=== PATIENT | male | born 1965 | race Caucasian/White ===

== ENCOUNTER 2025-06-26 12:18 | Inpatient (IN) | payer MEDICAID ==
[~2025-06-26] VITALS: Ht 167.6 cm; Wt 65.9 kg
[2025-06-26 14:32] VITALS: BP 124/73; TEMP 97.2; O2SAT 100
[2025-06-26] MEDS ORDERED: GLUCOSE 4 GM CHEW PO PRN (14:40)
[2025-06-26] MEDS ORDERED: BISACODYL 10 MG SUPP PR PRN (14:40)
[2025-06-26] MEDS ORDERED: ONDANSETRON 4MG ORAL DISINTEGRATING TAB PO PRN (14:40)
[2025-06-26] MEDS ORDERED: GLUCAGON INJ 1 MG VIAL SC PRN (14:40)
[2025-06-26] MEDS ORDERED: DEXTROSE 50% 50 ML SYRINGE IV PRN (14:40)
[2025-06-26] MEDS ORDERED: CLOP75TA2 PO (15:42)
[2025-06-26] MEDS ORDERED: ASPI81TA26 PO (15:42)
[2025-06-26] MEDS ORDERED: ATOR80TA59 PO (15:42)
[2025-06-26] MEDS ORDERED: TAMS-18 PO (15:42)
[2025-06-26] MEDS ORDERED: LANTINJ4 SC (15:42)
[2025-06-26] MEDS ORDERED: AMIT25TA19 PO (15:42)
[2025-06-26] MEDS ORDERED: ACET-683 PO (15:42)
[2025-06-26] MEDS ORDERED: GABA-1490 PO (15:42)
[2025-06-26] MEDS ORDERED: FINA-48 PO (15:42)
[2025-06-26] MEDS ORDERED: AMLO-751 PO (15:42)
[2025-06-26] MEDS ORDERED: NICO14DI6 TD (15:42)
[2025-06-26] MEDS ORDERED: LOSA100T46 PO (15:42)
[2025-06-26] MEDS ORDERED: HOME MED LIST COMPLETE! XX SCH (15:45)
[2025-06-26] MEDS: COMBIVENT RESPIMAT 100-20 MCG INHALER 4 GM INH SCH (16:00)
[2025-06-26] MEDS: GABAPENTIN 300 MG CAP PO SCH (17:03)
[2025-06-26] MEDS: INSULIN LISPRO (NovoLOG) PER UNIT SC SCH ×2 (17:04→20:09)
[2025-06-26 20:00] VITALS: BP 146/93; TEMP 97.3; O2SAT 99
[2025-06-26] MEDS: SENNA 8.6 MG TAB PO SCH (20:10)
[2025-06-26] MEDS: DOCUSATE SODIUM 100 MG CAPSULE PO SCH (20:10)
[2025-06-26] MEDS: HEPARIN SOD 5000 UNITS/ML 1 ML VIAL/SYRINGE SC SCH (20:55)
[2025-06-26] MEDS: ACETAMINOPHEN 325 MG TAB PO PRN (20:56)
[2025-06-26] MEDS: AMITRIPTYLINE 25 MG TABLET PO SCH (20:56)
[2025-06-26] MEDS: ATORVASTATIN 20 MG TAB PO SCH (20:57)
[2025-06-26] MEDS: guaiFENesin ER TABLET 600 MG TAB PO SCH (20:57)
[2025-06-27 04:00] VITALS: BP 129/58; TEMP 98.3; O2SAT 96
[2025-06-27 07:24] LABS: BASO # 0.1 10^3/uL (0.0-0.2); BASO % 0.8 % (0.0-1.0); EOS # 0.2 10^3/uL (0.0-0.5); EOS % 3.0 % (0.0-3.0); LYMPH # 3.4 10^3/uL (1.5-5.0); LYMPH % 42.9 % (24.0-44.0); MONO # 0.6 10^3/uL (0.0-0.8); MONO % 7.9 % (2.0-8.0); NEUTROPHILS # 3.6 10^3/uL (1.5-8.5); NEUTROPHILS % 45.0 % (36.0-66.0); PLATELET COUNT, AUTOMATED 319 10^3/uL (150-450)
[2025-06-27] MEDS: NICOTINE 14 MG/24 HR TRANSDERMAL TD SCH (07:51)
[2025-06-27] MEDS: FINASTERIDE 5 MG TAB PO SCH (07:51)
[2025-06-27] MEDS: CLOPIDOGREL 75 MG TAB PO SCH (07:51)
[2025-06-27] MEDS: ASPIRIN 81 MG ENTERIC TABLET PO SCH (07:52)
[2025-06-27] MEDS: LOSARTAN 50 MG TABLET PO SCH (07:52)
[2025-06-27] MEDS: FAMOTIDINE 20 MG TAB PO SCH (07:52)
[2025-06-27] MEDS: amLODIPine 10 MG TAB PO SCH (07:54)
[2025-06-27 07:58] LABS: ALT/SGPT 19.0 U/L (7.0-40); AST/SGOT 27.0 U/L (<34); CALCIUM LEVEL 9.0 MG/DL (8.3-10.6); CARBON DIOXIDE LEVEL 29.0 MMOL/L (20-31); CHLORIDE LEVEL 102.0 MMOL/L (98-107); CREATININE FOR GFR 1.17 MG/DL (0.70-1.30); GLOMERULAR FILTRATION RATE 70.9 (>49); POTASSIUM SERUM 4.4 MMOL/L (3.5-5.1); SODIUM LEVEL 138.0 MMOL/L (136-145)
[2025-06-27 12:00] VITALS: BP 180/79; O2SAT 99
[2025-06-27] MEDS: GABAPENTIN 300 MG CAP PO SCH (17:08)
[2025-06-27 20:00] VITALS: BP 162/84; TEMP 97; O2SAT 99
[2025-06-27] MEDS: LanTUS (INSULIN GLARGINE INJ) 1 UNITS/0.01 ML SC SCH (20:32)
[2025-06-27] MEDS: ENOXAPARIN 40 MG/0.4 ML SYRINGE (J1650 PER 10MG) SC SCH (20:33)
[2025-06-27] MEDS: TAMSULOSIN 0.4 MG CAP PO SCH (20:33)
[2025-06-27] MEDS ORDERED: GABAPENTIN 300 MG CAP PO SCH (21:00)
[2025-06-28 04:00] VITALS: BP 161/72; TEMP 98.5; O2SAT 99
[2025-06-28 12:00] VITALS: BP 137/81; TEMP 97.3; O2SAT 97
[2025-06-28 20:00] VITALS: BP 200/100; TEMP 98.6; O2SAT 99
[2025-06-28] MEDS: amLODIPine 5 MG TAB PO ONE (20:10)
[2025-06-28 21:00] VITALS: BP 145/57
[2025-06-29 04:00] VITALS: BP 150/80; TEMP 97.3; O2SAT 97
[2025-06-29 12:00] VITALS: BP 171/77; TEMP 98.3; O2SAT 98
[2025-06-29 20:00] VITALS: BP 147/73; TEMP 98.1; O2SAT 98
[2025-06-29] MEDS: RAMELTEON 8 MG TAB PO PRN (20:33)
[2025-06-30 04:45] VITALS: BP 140/63; TEMP 97.4; O2SAT 98
[2025-06-30 06:01] LABS: BASO # 0.1 10^3/uL (0.0-0.2); BASO % 0.8 % (0.0-1.0); EOS # 0.3 10^3/uL (0.0-0.5); EOS % 3.3 % (0.0-3.0); LYMPH # 3.3 10^3/uL (1.5-5.0); LYMPH % 33.9 % (24.0-44.0); MONO # 0.8 10^3/uL (0.0-0.8); MONO % 8.5 % (2.0-8.0); NEUTROPHILS # 5.1 10^3/uL (1.5-8.5); NEUTROPHILS % 53.2 % (36.0-66.0); PLATELET COUNT, AUTOMATED 304 10^3/uL (150-450)
[2025-06-30 06:31] LABS: CALCIUM LEVEL 9.9 MG/DL (8.3-10.6); CARBON DIOXIDE LEVEL 26.0 MMOL/L (20-31); CHLORIDE LEVEL 107.0 MMOL/L (98-107); CREATININE FOR GFR 1.28 MG/DL (0.70-1.30); GLOMERULAR FILTRATION RATE 63.7 (>49); POTASSIUM SERUM 4.7 MMOL/L (3.5-5.1); SODIUM LEVEL 141.0 MMOL/L (136-145)
[2025-06-30 12:00] VITALS: BP 169/75; TEMP 97.3; O2SAT 99
[2025-06-30 20:00] VITALS: BP 142/80; TEMP 97.7; O2SAT 99
[2025-07-01 04:00] VITALS: BP 153/72; TEMP 97.8; O2SAT 96
[2025-07-01 12:00] VITALS: BP 144/63; TEMP 97.9; O2SAT 100
[2025-07-01 20:00] VITALS: BP 192/82; TEMP 97.4; O2SAT 98
[2025-07-01 21:10] VITALS: BP 180/78
[2025-07-02 04:00] VITALS: BP 152/66; TEMP 97.7; O2SAT 97
[2025-07-02 12:00] VITALS: BP 180/91; TEMP 98; O2SAT 100
[2025-07-02] MEDS: **hydrALAZINE HCL** 25 MG TAB PO SCH (17:08)
[2025-07-02 20:00] VITALS: BP 190/80; TEMP 98; O2SAT 99
[2025-07-03 00:46] VITALS: BP 160/78
[2025-07-03 04:00] VITALS: BP 147/65; TEMP 98.5; O2SAT 96
[2025-07-03 07:25] VITALS: BP 142/65
[2025-07-03 12:15] VITALS: BP 168/78; TEMP 98.1; O2SAT 100
[2025-07-03 15:19] VITALS: BP 158/72
[2025-07-03] MEDS ORDERED: RAME8TAB2 PO (15:40)
[2025-07-03] MEDS ORDERED: GABA-1490 PO (15:40)
[2025-07-03] MEDS ORDERED: HYDR25TA87 PO (15:40)
[2025-07-03] MEDS ORDERED: SITA50TAB PO (15:40)
[2025-07-03] MEDS ORDERED: ATOR80TA59 PO (15:40)
[2025-07-03] MEDS ORDERED: COMBAER6 INH (15:40)
[2025-07-03] MEDS ORDERED: CLOP75TA2 PO (15:40)
[2025-07-03] MEDS ORDERED: LOSA100T46 PO (15:40)
[2025-07-03] MEDS ORDERED: AMLO-751 PO (15:40)
[2025-07-03] MEDS ORDERED: AMIT25TA19 PO (15:40)
[2025-07-03] MEDS ORDERED: FAMO20TA PO (15:40)
[2025-07-03] MEDS ORDERED: MUCI600T31 PO (15:40)
[2025-07-03 19:50] VITALS: BP 178/81; TEMP 97.8; O2SAT 100
[2025-07-04 04:02] VITALS: BP 158/78; TEMP 97.4; O2SAT 97
[2025-07-04 08:26] VITALS: BP 148/78
== END 2025-07-04 10:50 | disposition home or self-care (01) | DRG 58 ==
LOC: M PM&R 14:32
PROVIDERS: ADMIT Physical Medicine & Rehabilitation; ATTEND Physical Medicine & Rehabilitation
DX: I69.351 Hemiplegia and hemiparesis following cerebral infarction affecting right dominant side (principal); E11.51 Type 2 diabetes mellitus with diabetic peripheral angiopathy without gangrene; I10 Essential (primary) hypertension; J44.9 Chronic obstructive pulmonary disease, unspecified; F32.A Depression, unspecified; F10.10 Alcohol abuse, uncomplicated; F12.90 Cannabis use, unspecified, uncomplicated; F14.90 Cocaine use, unspecified, uncomplicated; F17.200 Nicotine dependence, unspecified, uncomplicated; Z79.82 Long term (current) use of aspirin; Z79.899 Other long term (current) drug therapy; Z79.4 Long term (current) use of insulin; Z91.013 Allergy to seafood; G47.00 Insomnia, unspecified